=== PATIENT | female | born 1960 | race Caucasian/White ===

== ENCOUNTER → 2017-08-13 | Outpatient (CLI) | payer OTHER ==
[~2017-08-13] MED LIST: MECL25 PO; MELO7.5 PO; SERT100 PO
== END | disposition home or self-care (01) ==
LOC: OLS 13:48 → LAB SHORT 13:48
PROVIDERS: Nurse Practitioner Women's Health
DX: Z12.4 Encounter for screening for malignant neoplasm of cervix (principal); Z91.89 Other specified personal risk factors, not elsewhere classified
CPT/HCPCS: 87624; G0123

== ENCOUNTER → 2017-09-17 | Outpatient (CLI) | payer OTHER | LOC: LAB SHORT 07:20 → PLD 07:20 | DX: N84.0 Polyp of corpus uteri (principal); N85.00 Endometrial hyperplasia, unspecified; N92.1 Excessive and frequent menstruation with irregular cycle | CPT/HCPCS: 88305 ==

== ENCOUNTER → 2017-09-25 | Outpatient (CLI) | payer OTHER ==
[~2017-09-25] MED LIST changes: +Multivitamin1 EAC1 PO
[2017-09-25 13:51] LABS: Source, Urine Clean Catch
[2017-09-25 14:00] LABS: Appearance, Urine Clear (Clear); Bilirubin, Urine Neg (Neg); Blood, Urine 4+ (Neg); Color, Urine Yellow (P-Yellow); Glucose Qualitative, Urine Neg (Neg); Ketones, Urine Neg (Neg); Leukocyte Esterase, Urine 3+ (Neg); Nitrite, Urine Neg (Neg); Protein, Urine Neg (Neg); Urobilinogen, Urine NORM (Normal)
[2017-09-25 14:09] LABS: Bacteria Mod /hpf; Red Blood Cells, Urine 0-2 /hpf (0-2); Squamous Epithelial Cells Mod /hpf (Few); White Blood Cells, Urine 0-2 /hpf (0-5)
== END | disposition home or self-care (01) ==
LOC: LAB 13:49 → LAB SHORT 13:49 → LAB FUT 09-23 11:55
PROVIDERS: Obstetrics & Gynecology Gynecology
DX: Z01.818 Encounter for other preprocedural examination (principal); N84.0 Polyp of corpus uteri
CPT/HCPCS: 81001; 87077; 87086; 87186

== ENCOUNTER → 2017-12-21 | Outpatient (CLI) | payer OTHER ==
[2017-12-21 16:39] LABS: BASOPHILS ABSOLUTE AUTO 0.04 K/mm3 (0.00-0.23); BASOPHILS PERCENT AUTO 1 % (0-2); EOSINOPHILS ABSOLUTE AUTO 0.11 K/mm3 (0.00-0.68); EOSINOPHILS PERCENT AUTO 2 % (0-6); Hematocrit 35.7 % (33.0-51.0); Hemoglobin 11.6 g/dL (11.5-16.0); IMMATURE GRAN ABSOLUTE AUTO 0.02 K/mm3 (0.00-0.10); IMMATURE GRAN PERCENT AUTO 0 % (0-1); LYMPHOCYTES ABSOLUTE AUTO 1.28 K/mm3 (0.84-5.20); LYMPHOCYTES PERCENT AUTO 24 % (21-46); MONOCYTES ABSOLUTE AUTO 0.31 K/mm3 (0.16-1.47); MONOCYTES PERCENT AUTO 6 % (4-13); Mean Corpuscular HGB 30.9 pg (26.0-34.0); Mean Corpuscular HGB Conc 32.5 g/dL (31.5-36.5); Mean Corpuscular Volume 95 fL (80-100); Mean Platelet Volume 10.5 fL (9.1-12.4); NEUTROPHILS ABSOLUTE AUTO 3.49 K/mm3 (1.96-9.15); NEUTROPHILS PERCENT AUTO 66 % (41-73); Platelet Count 155 K/mm3 (150-400); RDW Coefficient Variation 12.3 % (11.7-14.2); Red Blood Cell Count 3.76 M/mm3 (3.80-5.20); White Blood Cell Count 5.25 K/mm3 (4.00-11.30)
== END | disposition home or self-care (01) ==
LOC: LAB SHORT 15:48 → LAB 15:48
PROVIDERS: Obstetrics & Gynecology Gynecology
DX: N92.1 Excessive and frequent menstruation with irregular cycle (principal)
CPT/HCPCS: 85025

== ENCOUNTER → 2018-10-20 | Outpatient (CLI) | payer OTHER ==
[~2018-10-20] MED LIST changes: +DOCU100 PO; +HYDR1TAB94 PO; +Hair, Skin & N1 EACH PO
[2018-10-22 15:07] LABS: HPV 16 Negative (Negative); HPV 18 Negative (Negative); HPV OTHER HR TYPES Negative (Negative)
== END ==
LOC: LAB SHORT 15:56 → LAB 15:56
PROVIDERS: Nurse Practitioner Women's Health
DX: Z12.72 Encounter for screening for malignant neoplasm of vagina (principal); Z91.89 Other specified personal risk factors, not elsewhere classified
CPT/HCPCS: 87624; G0123

== ENCOUNTER 2020-08-13 09:57 | Day surgery (SDC) | payer OTHER ==
[~2020-08-13] VITALS: Ht 167.6 cm; Wt 56.7 kg
[~2020-08-13 09:57] MED LIST changes: +MOBIC15 MG; +MULVITA; +Prozac20 MG; +THERA-D2000 UNIT; +Vitamin B Comple1 EA; +Voltaren100 GM
[2020-08-13] MEDS ORDERED: ONDA4 (10:06)
== END 2020-08-13 12:02 | disposition home or self-care (01) ==
LOC: ORSCSDS 09:57
PROVIDERS: Internal Medicine Gastroenterology
PROC: 0DBM8ZX Excision of Descending Colon, Via Natural or Artificial Opening Endoscopic, Diagnostic (ICD-10-PCS; principal; 2020-08-13 11:15)
PROC: 0DBP8ZX Excision of Rectum, Via Natural or Artificial Opening Endoscopic, Diagnostic (ICD-10-PCS; principal; 2020-08-13 11:15)
DX: Z12.11 Encounter for screening for malignant neoplasm of colon (principal); D12.8 Benign neoplasm of rectum; K62.82 Dysplasia of anus; K57.30 Diverticulosis of large intestine without perforation or abscess without bleeding; K64.1 Second degree hemorrhoids; J45.909 Unspecified asthma, uncomplicated; Z79.899 Other long term (current) drug therapy
CPT/HCPCS: 88305; 88342; J2704

== ENCOUNTER 2021-10-07 11:31 | Emergency (ER) | payer OTHER | END 2021-10-07 15:55 | disposition home or self-care (01) | LOC: ER 11:31 | DX: R07.9 Chest pain, unspecified (principal); Z88.2 Allergy status to sulfonamides; Z91.013 Allergy to seafood; Z79.899 Other long term (current) drug therapy ==